=== PATIENT | female | born 1965 | race Caucasian/White ===

== ENCOUNTER → 2021-08-10 13:35 | Outpatient (BNVA) | payer OTHER, MEDICAID, SELFPAY | PROVIDERS: PCP Family Medicine; Visit Provider Counselor Professional | DX: F41.1 Generalized anxiety disorder (principal); F41.0 Panic disorder [episodic paroxysmal anxiety] | CPT/HCPCS: 90791 ==

== ENCOUNTER 2022-08-05 07:30 | Outpatient (CLI) | payer BC, MEDICAID, SELFPAY ==
--- NOTE | 2022-08-05 07:42 | CT_ITS ---
WS: [id number] LDCT LUNG CANCER SCREENING TECHNIQUE: Noncontrast CT of the chest with coronal and sagittal reformatted images. CLINICAL INFORMATION: NICOTINE DEPENDENCE,CIGARETTES COMPARISON: None. DLP: 63.97 mGy.cm DIvol: Mean CTDIvol: 1.10 (mGy) All CT scans at [facility] use at least one of these dose optimization techniques: automat ed exposure control; mA and/or kV adjustment per patient size (includes targeted exams where dose is matched to clinical indication); or iterative reconstruction. FINDINGS: No acute pulmonary infiltrates. No suspicious pulmonary parenchymal abnormalities. Normal caliber thoracic aorta. No mediastinal or hilar lymphadenopathy. Calcified anterior mediastina l and hilar lymph nodes. No axillary lymphadenopathy. LEFT adrenal gland is normal. Incompletely visu alized nodularity RIGHT adrenal gland suspicious for small adrenal adenoma. Small esophageal hiatal hernia. Calcified granuloma RIGHT upper lobe. CT/CT lung screening [id number] IMPRESSION: LUNG-RADS: 1-Negative FOLLOW UP: 12 Month: Continue annual screening with LDCT
== END 2022-08-05 07:31 | disposition home or self-care (01) ==
LOC: RAD 07:34
PROVIDERS: PCP Family Medicine; Visit Provider Family Medicine
DX: Z12.2 Encounter for screening for malignant neoplasm of respiratory organs (principal); F17.210 Nicotine dependence, cigarettes, uncomplicated
CPT/HCPCS: 71271

== ENCOUNTER 2023-06-23 12:34 | Outpatient (CLI) | payer BC, MEDICAID, SELFPAY ==
--- NOTE | 2023-06-23 12:54 | XR_ITS ---
WS: [id number] Exam: XR knee LT 1-2V [id number] Date/Time of Exam: 06/23/2023 1:06 PM Reason For Exam: PAIN IN LEFT KNEE No fracture or dislocation. The joint compartments are preserved. No joint effusion. Mild spurring of the anterior patella. Small osteochondroma along the medial aspect of the upper fibula. IMPRESSION: 1. No acute fracture or other significant finding.
== END 2023-06-23 12:35 | disposition home or self-care (01) ==
LOC: RAD 12:46
PROVIDERS: PCP Family Medicine; Visit Provider Nurse Practitioner
DX: M25.562 Pain in left knee (principal)
CPT/HCPCS: 73560

== ENCOUNTER 2023-07-26 12:16 | Outpatient (CLI) | payer BC, MEDICAID, SELFPAY ==
--- NOTE | 2023-07-26 12:22 | MR_ITS ---
WS: [id number] MRI LEFT KNEE HISTORY: PAIN IN LEFT KNEE COMPARISON: Radiograph 06/23/2023 Anterior cruciate ligament: Intact. Posterior cruciate ligament: Intact. Medial collateral ligament: Intact. Posterior lateral corner structures: Intact. Medial menisci: Intact. Normal signal, size and shape. Lateral meniscus: Intact. Normal signal, size and shape. Extensor mechanism: Distal quadriceps tendon and patellar tendons are intact. Fluid and soft tissue: No joint effusion. No Mora's cyst. Osseous and articular structures: Patellofemoral compartment: Normal. Medial compartment: Minimal joint space narrowing. Cartilage is well preserved. Lateral compartment: There is mild increased T2 signal at the origin of the medial and lateral heads of the gastrocnemius muscles. Consistent with a mild sprain no tear or full-thickness tear is identified of the tendons. L obulated cystic mass associated with the insertion site of the lateral gastrocnemius tendon. Probably representing a small ganglion measuring 6 x 5 mm. No atrophy or edema within the gastrocnemius muscl es. MR/MR knee LT wo con* [id number] IMPRESSION: 1. No meniscal or ACL tear. 2. Mild increased T2 signal involving the insertion sites of the gastrocnemius muscles, medial and lateral. Suspect mild sprain. Lobulated cyst associated wi th the lateral head of the gastrocnemius probably representing a small ganglion measuring 6 x 5 mm. 3. No marrow edema and no joint effusion.
== END 2023-07-26 12:17 | disposition home or self-care (01) ==
LOC: RAD 12:17
PROVIDERS: PCP Family Medicine; Visit Provider Orthopaedic Surgery
DX: M25.562 Pain in left knee (principal); M67.462 Ganglion, left knee
CPT/HCPCS: 73721

== ENCOUNTER 2023-09-16 14:34 | Outpatient (CLI) | payer BC, MEDICAID, SELFPAY ==
--- NOTE | 2023-09-16 14:37 | CT_ITS ---
WS: [id number] LDCT LUNG CANCER SCREENING TECHNIQUE: Noncontrast CT of the chest with coronal and sagittal reformatted images. CLINICAL INFORMATION: TOBACCO USE COMPARISON: CT 08/05/2022 DLP: 78.61 mGy.cm DIvol: Mean CTDIvol: 1.50 (mGy) All CT scans at [facility] use at least one of these dose optimization techniques: automat ed exposure control; mA and/or kV adjustment per patient size (includes targeted exams where dose is matched to clinical indication); or iterative reconstruction. FINDINGS: Calcified granuloma RIGHT upper lobe.A few tiny subpleural nodules in the RIGHT and LEFT up per lobe. Subsegmental atelectasis LEFT lower lobe. Normal caliber thoracic aorta. No mediastinal or hilar lymphadenopathy. No axillary lymphadenopathy. Calcified anterior mediastinal and hilar lymph nodes. RIGHT adrenal adenoma measuring 2.5 cm. LEFT ad renal gland is normal. Small esophageal hiatal hernia. Mild thoracic curve. Mild thoracic kyphosis. Mild spondylitic changes thoracic spine. CT/CT lung screening [id number] IMPRESSION: LUNG-RADS: 2-Benign Appearance or Behavior FOLLOW UP: 12 Month: Continue annual screening with LDCT
== END 2023-09-16 14:35 | disposition home or self-care (01) ==
PROVIDERS: PCP Family Medicine; Visit Provider Family Medicine
DX: Z12.2 Encounter for screening for malignant neoplasm of respiratory organs (principal); Z72.0 Tobacco use; J84.10 Pulmonary fibrosis, unspecified; J98.11 Atelectasis; D35.01 Benign neoplasm of right adrenal gland; K44.9 Diaphragmatic hernia without obstruction or gangrene
CPT/HCPCS: 71271

== ENCOUNTER 2024-01-19 10:45 | Outpatient (CLI) | payer BC, MEDICAID, SELFPAY ==
--- NOTE | 2024-01-19 10:53 | XR_ITS ---
WS: [email or web address] Exam: XR hip RT 2-3V wo/w pel* [id number] Date/Time of Exam: 01/19/2024 10:54 AM Reason For Exam: pain in right hip No fracture or dislocation. The joint compartment is well-maintained. Mild degenerative change of the acetabular rim. XR/XR hip RT 2-3V wo/w pel* [id number] IMPRESSION: 1. Minimal degenerative change of the acetabulum. The hip is otherwise unremark able.
--- NOTE | 2024-01-19 10:53 | XR_ITS ---
WS: [email or web address] Exam: XR lumbar spine 2-3V* [id number] Date/Time of Exam: 01/19/2024 10:54 AM Reason For Exam: low back pain No fracture or dislocation. There is straightening. Mild spondylosis. Disc spaces are relatively well -maintained. Posterior elements are intact. XR/XR lumbar spine 2-3V* [id number] IMPRESSION: 1. Straightening and minimal degenerative change.
== END 2024-01-19 10:46 | disposition home or self-care (01) ==
PROVIDERS: PCP Nurse Practitioner Family; Visit Provider Nurse Practitioner Family
DX: M25.551 Pain in right hip (principal); M54.50 Low back pain, unspecified
CPT/HCPCS: 72100; 73502

== ENCOUNTER 2024-09-11 22:33 | Emergency (ER) | payer BC, MEDICAID, SELFPAY ==
[2024-09-11 22:35] VITALS: BP 153/75; PULSE 86; RESP 16; TEMP 36.6; O2SAT 96; BMI 32.8
--- NOTE | 2024-09-11 22:36 | XRR_ITS ---
PROCEDURE INFORMATION: Exam: XR Chest Exam date and time: 09/11/2024 10:48 PM Age: 59 years old Clinical indication: Pain; Chest pressure; Additional info: Chest pain TECHNIQUE: Imaging protocol: Radiologic exam of the chest. Views: 1 view. COMPARISON: CT lung screening [id number] 09/16/2023 2:52 PM FINDINGS: Lungs: Mild left basilar linear atelectasis versus scarring. Stable right lung calcified granuloma. No consolidation. Pleural spaces: Unremarkable. No pleural effusion. No pneumothorax. Heart/Mediastinum: Unremarkable. No cardiomegaly. Bones/joints: Unremarkable. XR/XR chest 1V portable [id number] IMPRESSION: No acute findings.
--- NOTE | 2024-09-11 22:37 | ECG_ITS ---
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 Measurements Intervals [place] Rate: 85 P: 44 [place]: 124 QRS: 65 QRSD: 88 T: 52 QT: 389 QTc: 464 Interpretive Statements SINUS RHYTHM No previous ECG available for comparison Electronically Signed On 09-13-2024 06:08:13 CDT by Peter Majano M.D. [id number]
--- NOTE | 2024-09-11 22:43 | W.ED.CHESTPA ---
HPI - Chest Pain General: Chief Complaint: Chest Pain Stated Complaint: cp Time Seen by Provider: 09/11/24 22:34 History of Present Illness: 59-year-old female with a history of hypertension, anxiety who presents emergency room by ambulance with chest pain. She developed chest pain about 2-1/2 hours ago. She received nitro en route and aspirin and now has pain relief after the nitro. No cough. No fever. No shortness of breath. No lower extremity swelling. No altered mental status. Related Data Home Medications ?Medication ?Instructions ?Recorded ?Confirmed alprazolam 0.5 mg tablet 0.5 mg PO DAILY 08/10/21 08/10/21 amlodipine 5 mg tablet 5 mg PO DAILY 08/10/21 08/10/21 aspirin 81 mg tablet,delayed 81 mg PO DAILY 08/10/21 08/10/21 release (Adult Low Dose Aspirin) chlorthalidone 25 mg tablet 25 mg PO DAILY 08/10/21 08/10/21 cholecalciferol (vitamin D3) 125 125 mcg PO DAILY 08/10/21 08/10/21 mcg (5,000 unit) tablet clonidine HCl 0.1 mg tablet 0.1 mg PO BID 08/10/21 08/10/21 losartan 100 mg tablet 100 mg PO DAILY 08/10/21 08/10/21 metoprolol succinate 100 mg 100 mg PO DAILY 08/10/21 08/10/21 tablet,extended release 24 hr omega 1-gmj-aqf-fish oil 1,000 mg 1 cap PO DAILY 08/10/21 08/10/21 (120 mg-180 mg) capsule (Fish Oil) sertraline 100 mg tablet 100 mg PO DAILY 08/10/21 08/10/21 Allergies Allergy/AdvReac Type Severity Reaction Status Date / Time No Known Allergies Allergy Verified 08/10/21 14:30 Review of Systems Narrative: Constitutional symptoms: Negative except as documented in HPI. Skin symptoms: Negative except as documented in HPI. Eye symptoms: Negative except as documented in HPI. ENMT symptoms: Negative except as documented in HPI. Respiratory symptoms: Negative except as documented in HPI. Cardiovascular symptoms: Negative except as documented in HPI. Gastrointestinal symptoms: Negative except as documented in HPI. Genitourinary symptoms: Negative except as documented in HPI. Musculoskeletal symptoms: Negative except as documented in HPI. Neurologic symptoms: Negative except as documented in HPI. Psychiatric symptoms: Negative except as documented in HPI. Endocrine symptoms: Negative except as documented in HPI. Physical Exam Narrative: EXAM NARRATIVE: General: Alert, no acute distress. Skin: Warm, dry. Head: Normocephalic, atraumatic. Neck: Supple, trachea midline. Eye: Extraocular movements are intact. Ears, nose, mouth and throat: mucosa moist. Cardiovascular: Regular, Normal peripheral perfusion. Respiratory: Lungs are clear to auscultation, respirations are non-labored, breath sounds are equal, Symmetrical chest wall expansion. Gastrointestinal: Soft, Nontender, Non distended Musculoskeletal: Normal ROM, no deformity. Neurological: Alert and oriented, No focal neurological deficit observed. Psychiatric: Cooperative, appropriate mood & affect. Course Vital Signs: Vital signs: Vital Signs Temperature 97.8 F 09/11/24 22:35 Pulse Rate 84 09/12/24 02:30 Respiratory Rate 16 09/12/24 02:30 Blood Pressure 127/62 09/12/24 02:30 Pulse Oximetry 94 09/12/24 02:30 Oxygen Delivery Me thod Room Air 09/12/24 02:30 MDM - Chest Pain Medical Decision Making Differential diagnosis for patient with chest pain includes but is not limited to and based on the above HPI, review of systems and physical exam: Pneumonia. unstable angina. angina. Acute coronary syndrome / [place]. Pulmonary embolism. Costochondritis / musculoskeletal. Pleurisy. Pericarditis. Esophageal spasm. Pancreatis. Cholecystitis. Orders placed to evaluate differential diagnosis based on the above differential, HPI and physical exam EKG: Time 2243. Rate 85. Normal sinus rhythm, No ST-T changes, no ectopy, normal AR & QRS intervals, This was reviewed and interpreted by myself the ER physician at 2246 Chest x-ray: No acute process. No infiltrate. No pneumothorax. This was reviewed and interpreted by myself the emergency room physician. I also reviewed the radiology report. Lab Review: Laboratory results were reviewed and interpreted by myself the emergency room physician. Mild leukocytosis. No anemia. No renal failure. Glucose is slightly elevated. Liver enzymes are mildly elevated at 283 and 127 respectively. Cardiac markers are negative serially. CT of the abdomen pelvis were done to evaluate elevated liver enzymes and gallbladder. She does have some mild tenderness in her right upper quadrant. This was negative. No acute process. Right adrenal nodule. I reviewed the patient's medical record. Reexamination: Patient remained stable. No increased work of breathing. No altered mental status. No focal motor deficits. No further chest pain Assessment and plan: Noncardiac chest pain Elevated liver enzymes - Discharged home - Discussed plan with patient. Answered any questions. - Evaluation and treatment of this problem were appropriate in the emergency setting. Lab Data 09/11/24 22:51 09/11/24 22:51 Radiology Impressions Chest X-Ray 09/11/24 22:36 IMPRESSION: No acute findings. Abdomen/Pelvis CT 09/12/24 00:02 IMPRESSION: 1. No acute findings. 2. Chronic and incidental findings as above, to include stable 2.7 cm right adrenal nodule. Laboratory Results WBC 13.79 10^3/uL (3.29-11.43) H 09/11/24 22:51 RBC 4.45 10^6/uL (3.85-5.65) 09/11/24 22:51 Hgb 13.50 g/dL (11.27-16.99) 09/11/24 22:51 Hct 40.0 % (36-47) 09/11/24 22:51 MCV 89.9 fl (85-98) 09/11/24 22:51 MCH 30.3 pg (27-33) 09/11/24 22:51 MCHC 33.8 g/dL (30-55) 09/11/24 22:51 RDW 12.9 % (12.1-15.1) 09/11/24 22:51 Plt Count 259 10^3/cmm (157-399) 09/11/24 22:51 MPV 9.8 fL (7.4-10.4) 09/11/24 22:51 Neut % (Auto) 78.1 % 09/11/24 22:51 Lymph % (Auto) 12.7 % 09/11/24 22:51 [place] % (Auto) 8.0 % 09/11/24 22:51 Eos % (Auto) 0.3 % 09/11/24 22:51 Baso % (Auto) 0.5 % 09/11/24 22:51 Neut # (Auto) 10.77 10^3/uL (1.8-7.7) H 09/11/24 22:51 Lymph # (Auto) 1.8 10^3/uL (0.8-4.8) 09/11/24 22:51 [place] # (Auto) 1.1 10^3/uL (0.2-0.9) H 09/11/24 22:51 Eos # (Auto) 0.0 10^3/uL (0.0-0.8) 09/11/24 22:51 Baso # (Auto) 0.1 10^3/uL (0.0-0.1) 09/11/24 22:51 Nucleated RBC % (auto) 0 % 09/11/24 22:51 Nucleated RBCs # 0.0 /100WBC 09/11/24 22:51 Sodium 134 mmol/L (136-145) L 09/11/24 22:51 Potassium 3.4 mmol/L (3.5-5.1) L 09/11/24 22:51 Chloride 97 mmol/L (98-107) L 09/11/24 22:51 Carbon Dioxide 23 mmol/L (22-29) 09/11/24 22:51 Anion Gap 17.4 (5-19) 09/11/24 22:51 BUN 11 mg/dL (6-20) 09/11/24 22:51 Creatinine 0.6 mg/dL (0.5-0.9) 09/11/24 22:51 GFR Calculation 103.0 mL/min (90-130) 09/11/24 22:51 Glucose 286 mg/dL (65-115) H 09/11/24 22:51 Calculated Osmolality 288 mOsm/kg (285-295) 09/11/24 22:51 Calcium 9.2 mg/dL (8.5-10.5) 09/11/24 22:51 Total Bilirubin 0.6 mg/dL (0.15-1.2) 09/11/24 22:51 AST 283 U/L (0-32) H 09/11/24 22:51 ALT 127 U/L (0-33) H 09/11/24 22:51 Alkaline Phosphatase 152 U/L (35-105) H 09/11/24 22:51 Troponin T Baseline < 6 ng/L (0-10) 09/11/24 22:51 Troponin T 120 Minute < 6.0 ng/L (0-10) 09/12/24 01:00 Delta Troponin T 0 ABS# (0-10) 09/12/24 01:00 NT-Pro-B Natriuret Pep 183 pg/mL (0-125) H 09/11/24 22:51 Total Protein 6.6 g/dL (6.6-8.7) 09/11/24 22:51 Albumin 3.9 g/dL (3.5-5.2) 09/11/24 22:51 Globulin 2.7 g/dL (1.3-4.6) 09/11/24 22:51 Lipase 28 U/L (13-60) 09/11/24 22:51 All radiology interpretation(s) finalized by discharge Discharge Plan Discharge Patient Disposition: Home Clinical Impression: Non-cardiac chest pain, Elevated liver enzymes Condition: Stable Prescriptions: No Action clonidine HCl 0.1 mg tablet 0.1 mg PO BID losartan 100 mg tablet 100 mg PO DAILY sertraline 100 mg tablet 100 mg PO DAILY chlorthalidone 25 mg tablet 25 mg PO DAILY metoprolol succinate 100 mg tablet extended release 24 hr 100 mg PO DAILY cholecalciferol (vitamin D3) 125 mcg (5,000 unit) tablet 125 mcg PO DAILY amlodipine 5 mg tablet 5 mg PO DAILY alprazolam 0.5 mg tablet 0.5 mg PO DAILY aspirin [Adult Low Dose Aspirin] 81 mg tablet,delayed release (DR/EC) 81 mg PO DAILY omega 3-gsd-bdf-fish oil [Fish Oil] 1,000 mg (120 mg-180 mg) capsule 1 cap PO DAILY Discharge Orders: Discharge ED (Routine); Ordered 09/12/24 Ordered By: Hellen De Oliveira Referrals: Nova Casanova NP [Primary Care Provider, [facility]] Discharge Diet: Usual diet Discharge Activity: Increase activity as tolerated Patient Instructions: Noncardiac Chest Pain (ED), Opioid Safety, Pain Management Activity Restrictions/Additional Instructions: Please follow-up with your primary provider in the next few days. You need to have repeat liver enzymes done and discuss further workup for your chest pain. Thank you for choosing [facility] for your healthcare needs today. You have been screened and evaluated and felt safe for discharge. Health conditions do change or evolve sometimes and as such it is important that you follow up with your Primary Doctor to be re checked, 3-5 days is a general good time frame for follow up. You are always welcome to return to the ED for re assessment if your symptoms are worsening or you have new concerns Print Language: Maldivian Coding Level of Care Code ED Gum Dipper for Pierre Henderson
[2024-09-11 23:00] LABS: Basophils # 0.1 10^3/uL (0.0-0.1); Basophils % 0.5 %; Eosinophils % 0.3 %; Lymphocytes # 1.8 10^3/uL (0.8-4.8); Lymphocytes % 12.7 %; Mean Corpuscular HGB Conc 33.8 g/dL (30-55); Mean Corpuscular Hemoglobin 30.3 pg (27-33); Mean Corpuscular Volume 89.9 fl (85-98); Mean Platelet Volume 9.8 fL (7.4-10.4); Monocytes # 1.1 10^3/uL (0.2-0.9); Neutrophils # 10.77 10^3/uL (1.8-7.7); Neutrophils % 78.1 %; Nucleated Red Blood Cells % 0 %; Platelet Count 259 10^3/cmm (157-399); Red Blood Count 4.45 10^6/uL (3.85-5.65); Red Cell Distribution Width 12.9 % (12.1-15.1); White Blood Count 13.79 10^3/uL (3.29-11.43)
[2024-09-11 23:41] VITALS: BP 134/78; PULSE 89; RESP 16; O2SAT 94
[2024-09-11 23:41] LABS: Troponin(5th) Baseline < 6 ng/L (0-10)
[2024-09-11 23:46] LABS: Alanine Aminotransferase 127 U/L (0-33); Albumin Level 3.9 g/dL (3.5-5.2); Alkaline Phosphatase 152 U/L (35-105); Anion Gap 17.4 (5-19); Aspartate Amino Transferase 283 U/L (0-32); Blood Urea Nitrogen 11 mg/dL (6-20); Calcium 9.2 mg/dL (8.5-10.5); Carbon Dioxide 23 mmol/L (22-29); Chloride 97 mmol/L (98-107); Creatinine Clr Calc Pharmacy 122.5832; Globulin 2.7 g/dL (1.3-4.6); Glucose 286 mg/dL (65-115); NT Pro B Type Natriuretic Pept 183 pg/mL (0-125); Osmolality Calculated 288 mOsm/kg (285-295); Potassium 3.4 mmol/L (3.5-5.1); Sodium 134 mmol/L (136-145); Total Bilirubin 0.6 mg/dL (0.15-1.2); Total Protein 6.6 g/dL (6.6-8.7)
--- NOTE | 2024-09-12 00:02 | CTR_ITS ---
PROCEDURE INFORMATION: Exam: CT Abdomen And Pelvis With Contrast Exam date and time: 09/12/2024 12:32 AM Age: 59 years old Clinical indication: Abdominal pain; Localized; Right upper quadrant (ruq); Prior surgery; Surgery date: 6+ months; Surgery type: Complete hysterectomy; Additional info: Ruq pain, elevated liver enzymes TECHNIQUE: Imaging protocol: Computed tomography of the abdomen and pelvis with contrast. Radiation optimization: All CT scans at this facility use at least one of these dose optimization techniques: automated exposure control; mA and/or kV adjustment per patient size (includes targeted exams where dose is matched to clinical indication); or iterative reconstruction. Contrast material: OMNI 350; Contrast volume: 100 ml; Contrast route: INTRAVENOUS (IV); COMPARISON: CR XR hip RT 2-3V wo/w pel* [id number] 01/19/2024 11:13 AM RADIATION DOSE METRICS: Total DLP (mGy-cm): 869.7 FINDINGS: Lungs: Left basilar platelike atelectasis versus scarring. Diaphragm: Small hiatal hernia. Liver: Hepatic calcified granulomata. Otherwise unremarkable. Gallbladder and biliary ducts: Normal. No calcified stones. No ductal dilation. Pancreas: Normal. No ductal dilation. Spleen: No splenomegaly. Calcified granulomata. Adrenal glands: 2.7 x 2.0 cm right adrenal nodule, stable from August 2023. Unremarkable left adrenal gland. Kidneys and ureters: Right extrarenal pelvis. Otherwise unremarkable. Stomach and bowel: Unremarkable. No bowel dilatation to suggest obstruction. Appendix: No evidence of appendicitis. Intraperitoneal space: Unremarkable. No free air. No significant fluid collection. Vasculature: Mild systemic atherosclerosis without abdominal aortic aneurysm. Lymph nodes: Unremarkable. No enlarged lymph nodes. Urinary bladder: Unremarkable as visualized. Reproductive: The uterus is surgically absent. Bones/joints: No acute fracture. Mild degenerative changes along the spine and sacroiliac joints. Soft tissues: Tiny fat containing umbilical hernia. CT/CT abdomen pelvis w con* [id number] IMPRESSION: 1. No acute findings. 2. Chronic and incidental findings as above, to include stable 2.7 cm right adrenal nodule.
[2024-09-12 00:13] LABS: Lipase 28 U/L (13-60)
[2024-09-12] MEDS: iohexol 350 mg/mL 500 mL Btl (per mL) IV (00:35)
[2024-09-12 00:41] VITALS: BP 144/67; PULSE 85; RESP 16; O2SAT 95
--- NOTE | 2024-09-12 00:51 | ECG_ITS ---
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 Measurements Intervals [place] Rate: 82 P: 47 AR: 128 QRS: 69 QRSD: 97 T: 53 QT: 419 QTc: 492 Interpretive Statements SINUS RHYTHM Compared to ECG 09/11/2024 22:43:11 No significant changes Electronically Signed On 09-13-2024 06:25:59 CDT by Peter Majano M.D. [email or web address] [id number]
[2024-09-12 01:30] VITALS: BP 127/62; PULSE 82; RESP 16; O2SAT 92
[2024-09-12 01:32] LABS: Troponin 5 2HR < 6.0 ng/L (0-10); Troponin 5 2HR Delta 0 ABS# (0-10)
[2024-09-12 02:30] VITALS: BP 127/62; PULSE 84; RESP 16; O2SAT 94
[2024-09-12 03:41] VITALS: BP 198/89; PULSE 78; RESP 16; O2SAT 97
== END 2024-09-12 03:42 | disposition home or self-care (01) ==
PROVIDERS: Emergency Provider Emergency Medicine; PCP Nurse Practitioner Family
DX: R07.89 Other chest pain (principal); R94.5 Abnormal results of liver function studies; Z79.82 Long term (current) use of aspirin; I10 Essential (primary) hypertension
CPT/HCPCS: 71045; 74177; 80053; 83690; 83880; 84484; 85025; 93005; 99285